=== PATIENT | male | born 1980 | race Two or more races ===

== ENCOUNTER 2023-07-06 12:21 | Emergency (ER) | payer OTHER ==
[~2023-07-06] VITALS: Ht 175.3 cm; Wt 111.1 kg
== END 2023-07-06 19:02 | disposition home or self-care (01) ==
LOC: ER 12:22
DX: S22.31XA Fracture of one rib, right side, initial encounter for closed fracture (principal); S52.571A Other intraarticular fracture of lower end of right radius, initial encounter for closed fracture; S40.011A Contusion of right shoulder, initial encounter; Y93.89 Activity, other specified; W05.2XXA Fall from non-moving motorized mobility scooter, initial encounter; Y92.89 Other specified places as the place of occurrence of the external cause; Y99.9 Unspecified external cause status